=== PATIENT | male | born 1980 | race African-American/Black ===

== ENCOUNTER 2020-06-09 12:24 | Outpatient (CLI) | payer OTHER, SELFPAY ==
--- NOTE | ~2020-06-09 | XR_ITS ---
EXAMINATION: XR chest 2V DATE: 06/09/2020 12:36 INDICATION: Wheezing. TECHNIQUE: Frontal and lateral views of the chest were obtained. COMPARISON: Chest 2 views 01/10/2016, CT abdomen and pelvis 04/02/2016 FINDINGS: The chest demonstrates clear lungs without pneumonia, pleural effusion, or pneumothorax. Th e heart size is normal. IMPRESSION: 1. No acute cardiopulmonary disease. Reviewed, dictated and finalized at location A.
[2020-06-09 14:17] LABS: Hematocrit 40.4 % (42.0-52.0); Hemoglobin 13.5 g/dL (14.0-18.0); Mean Corpuscular HGB Conc 33.4 g/dl (32-36); Mean Corpuscular Hemoglobin 28.9 pg (26-34); Mean Corpuscular Volume 86.5 fl (80-100); Mean Platelet Volume 9.9 fl (7.4-10.4); Platelet Count Result 269 k/mm3 (150-375); Red Blood Count 4.67 M/mm3 (4.6-6.20); Red Cell Distribution Width 13.8 % (11.5-14.5); White Blood Count 3.7 K/mm3 (4.5-10.0)
[2020-06-09 14:29] LABS: Alanine Aminotransferase 28 U/L (4-50); Albumin Level 4.3 g/dL (3.5-5.1); Alkaline Phosphatase 88 U/L (38-126); Anion Gap 8 mmol/L (8-16); Aspartate Amino Transferase 30 U/L (17-59); Bilirubin,Total 0.5 mg/dL (0.2-1.3); Blood Urea Nitrogen 13 mg/dL (9-20); Calcium 9.2 mg/dL (8.4-10.2); Carbon Dioxide 27 mmol/L (22-30); Chloride 103 mmol/L (98-107); Cholesterol 146 mg/dL (0-200); Estimated Glomerular Filt Rate > 60; Glucose 89 mg/dL (75-110); HDL Direct 31 mg/dL; Potassium 3.5 mmol/L (3.4-5.0); Sodium 138 mmol/L (137-145); Triglycerides 108 mg/dL (<150)
[2020-06-09 14:40] LABS: LDL Cholesterol Direct 84 mg/dL
[2020-06-09 14:52] LABS: Hemoglobin A1C 5.2 % (<5.7)
[2020-06-09 15:00] LABS: Prostate Specific Antigen 1.4 ng/mL (< OR = 4.0)
[2020-06-09 16:12] LABS: Free T4 Free Thyroxine 1.03 ng/mL (0.78-2.19)
== END 2020-06-09 12:25 | disposition home or self-care (01) ==
LOC: ANHIMG 12:28
PROVIDERS: PCP Emergency Medicine; Visit Provider Emergency Medicine
DX: R06.2 Wheezing (principal)
CPT/HCPCS: 36415; 71046; 80053; 80061; 83036; 84153; 84439; 84443; 85027